=== PATIENT | female | born 1980 | race Caucasian/White ===

== ENCOUNTER 2017-07-15 14:44 | Emergency (ER) | payer BC ==
[~2017-07-15] VITALS: Ht 170.2 cm; Wt 61.2 kg
[2017-07-15 15:30] LABS: STREPTOCOCCUS GRP A ANTIGEN NEGATIVE (NEGATIVE)
[2017-07-15 15:39] LABS: INFLUENZAE A&B ANTIGEN (RAPID) NEGATIVE (NEGATIVE)
[2017-07-15 16:20] VITALS: BP 114/67
== END 2017-07-15 16:21 | disposition home or self-care (01) ==
LOC: ER 14:44
DX: J02.9 Acute pharyngitis, unspecified (principal)
CPT/HCPCS: 83518; 87070; 87400; 99282

== ENCOUNTER 2018-04-08 19:29 | Emergency (ER) | payer BC ==
[~2018-04-08] VITALS: Ht 170.2 cm; Wt 61.2 kg
[2018-04-08] MEDS ORDERED: CEFTRIAXONE SOD 1 GM VIAL IM ONE (20:00)
[2018-04-08] MEDS ORDERED: PHENAZOPYRIDINE HCL 100 MG TAB PO ONE (20:00)
[2018-04-08 20:20] LABS: CLARITY,URINE CLOUDY (CLEAR); COLOR,URINE RED (YELLOW); LEUKOCYTE ESTERASE ,URINE 1+ (NEGATIVE)
[2018-04-08 20:21] LABS: BILIRUBIN,URINE NEGATIVE (NEGATIVE); KETONES,URINE NEGATIVE (NEGATIVE); NITRITE,URINE POSITIVE (NEGATIVE); PREGNANCY TEST, URINE NEGATIVE (NEGATIVE); PROTEIN,URINE DIPSTICK 3+ (NEGATIVE); URINE UROBILINOGEN 0.2 mg/dL (0.2 - 1)
[2018-04-08 20:33] LABS: EPITHELIAL CELLS,URINE FEW /LPF; RBC,URINE >50 /HPF (0-5); WBC,URINE (MAN) >50 /HPF (0-5)
[2018-04-08] MEDS ORDERED: LIDOCAINE HCL 1% LOCAL INJ 20 ML VIAL ONE (20:42)
[2018-04-08] MEDS ORDERED: PHENAZOPYRIDINE HCL 100 MG TAB ONE (20:42)
[2018-04-08 21:58] VITALS: BP_DIAS 73
--- OUTSIDE RECORDS SUMMARY | 2018-04-11 13:46 | XMS REPORT | Clinical Summary ---
Author Author [facility] Organization [facility] Address Unknown Phone Unavailable Care Team Providers Care Dinkey Operator Name Role Phone Juancho Ramos MD PCP Unavailable Allergies No Known Allergies Current Medications Prescription Sig. Disp. Refills Start End Date Status Date gylkauwewuoj-Rh-ggjw-mine Take by mouth. Active rals (MULTIPLE VITAMIN, WOMENS) tablet Active Problems Not on file Encounters Date Type Specialty Care Team Description 12/05/2017 Telephone Obstetrics and Gynecology Prerna Tejeda RN 11/30/2017 Procedure visit Obstetrics and Gynecology Lars Encinas MD Pre-procedure lab exam (Primary Dx); ASCUS with positive high risk HPV cervical 11/02/2017 Telephone Obstetrics and Gynecology Jackelyn Velasquez MA 10/26/2017 Office Visit Obstetrics and Gynecology Lars Encinas MD Well woman exam (Primary Dx) after 04/07/2017 Family History Medical History Relation Name Comments Cancer Father leiomyoma Diabetes Paternal Grandmother Relation Name Status Comments Father Paternal Grandmother Social History Tobacco Use Types Packs/Day Years Used Date Never Smoker Smokeless Tobacco: Never Used Alcohol Use Drinks/Week oz/Week Comments No Sex Assigned at Date Recorded Not on file Last Filed Vital Signs Vital Sign Reading Time Taken Blood Pressure 120/80 11/30/2017 11:13 AM CDT Pulse 74 11/30/2017 11:13 AM CDT Temperature 36.9 C (98.4 F) 10/26/2017 11:12 AM CDT Respiratory Rate - - Oxygen Saturation - - Inhaled Oxygen - - Concentration Weight 60.3 kg (133 lb) 11/30/2017 11:13 AM CDT Height 170.2 cm (5' 7") 11/30/2017 11:13 AM CDT Body Mass Index 20.83 11/30/2017 11:13 AM CDT Plan of Treatment Health Maintenance Due Date Last Done Comments CERVICAL CANCER SCREENING 2001 INFLUENZA VACCINE 01/25/2018 Procedures Procedure Name Priority Date/Time Associated Diagnosis Comments TISSUE, SPECIMEN B Routine 11/30/2017 Results for this 11:46 AM CDT procedure are in the results section. SURGICAL PATHOLOGY Routine 11/30/2017 Pre-procedure lab exam Results for this REQUEST 11:46 AM CDT ASCUS with positive high procedure are in the risk HPV cervical results section. TISSUE, SPECIMEN A Routine 11/30/2017 Results for this 11:46 AM CDT procedure are in the results section. POC , URINE Routine 11/30/2017 Pre-procedure lab exam Results for this 11:20 AM CDT procedure are in the results section. HPV MRNA E6/E7 Routine 10/26/2017 Results for this 11:35 AM CDT procedure are in the results section. THINPREP TIS PAP Routine 10/26/2017 Results for this 11:35 AM CDT procedure are in the results section. after 04/07/2017 Results * Tissue, Specimen B (11/30/2017 11:46 AM) Source Ectoc[facility]ix [facility] Procedure Comment: Biopsy [facility] Gross description: Comment: [facility] Ectocervix, received in [facility] formalin, verified as to the patient's name and consists of one fragment(s) of rubbery, arnold-delgado, glistening tissue, measuring 0.3 x 0.2 x 0.1 cm.TS, one block. DT 11/30/2017 Micro description Comment: [facility] Microscopic examination [facility] supports the above diagnosis. Diagnosis Comment: [facility] Squamous mucosa with reactive [facility] squamous changes. No evidence of dysplasia or malignancy. Comment Comment: [facility] The previous pap smear [facility] ([id number]) is reviewed. It is felt that the findings of benign reactive squamous changes may explain the atypical cells seen on the pap smear. Clinical correlation and repeat pap smear with HPV studies in 4-6 months are recommended if clinically indicated. Other Results Text Performing Organization Information: Site ID: [id number] Name: [facility], Address: [address] [place] [phone] Director: Grupo Borden MD Performing Organization Address City/State/Zipcode Phone Number [facility] [employer] [address] [address] [facility] * TISSUE, SPECIMEN A (11/30/2017 11:46 AM) Source Comment: End[facility] (Cure[employer]age) [facility] Gross description: Comment: [facility] ECC, received in formalin, [facility] verified as to the patient's name and consists of multiple fragments of delgado translucent mucus and soft tissue forming a loose aggregate measuring 0.6 x 0.5 x 0.1 cm. Tissue may not survive processing.TS, one block. Gross exam(s) performed at: [facility] [address] [place] [phone] Associate Professor Of Physics: GRUPO BORDEN MD Micro description Comment: [facility] Microscopic examination [facility] supports the above diagnosis. Diagnosis Comment: [facility] Fragments of benign [facility] endocervical mucosa with squamous metaplasia and mucus. No evidence of dysplasia or malignancy. Other Results Text Performing Organization Information: Site ID: [id number] [facility]: [facility], Address: [address] [place] [address] Director: Grupo Borden MD Performing Organization Address City/[facility]/Zipcode Phone Number [place] [phone] [facility] * Surgical pathology request (11/30/2017 11:46 AM) Clinical information Comment: ASCUS, HPV+ [facility] Pathologist Comment: [facility] Grupo Borden MD, Board [facility] Certified in Anatomic Pathology, [phone] (electronic signature) Specimen Tissue Other Results Text Performing Organization Information: Site ID: [id number] Name: [facility], Address: [address] [place] [address] Director: Grupo Borden MD Performing Organization Address City/[facility]/[place] [address] [facility] * POC , urine (11/30/2017 11:20 AM) test urine, POC Negative QC done Yes Specimen Urine * HPV mRNA E6/E7 (10/26/2017 11:35 AM) HPV mRNA e6/e7 Detected (A) Not Detected [facility] [employer] Comment: [facility] This test was performed using the APTIMA HPV Assay ([employer] This assay detects E6/E7 viral messenger RNA (mRNA) from 14 high-risk HPV types (16,18,31,33,35,39,45,51,52,56 ,58,59,66,68). Other Results Text Performing Organization Information: Site ID: [id number] Name: [facility] Address: [address] [place] [phone] Director: Grupo Borden Performing Organization Address City/State/[facility] Phone [place] [address] * THINPREP TIS PAP (10/26/2017 11:35 AM) Clinical information None given [facility] Date of last menstrual NONE GIVEN [facility] [place] period [facility] Prev. pap: NONE GIVEN [facility] Prev. bx: NONE GIV[facility] Source None given [facility] Statement of adequacy Comment: [facility] NAT[facility] Satisfactory for evaluation. [facility] Endocervical/transformation zone component absent. Age and/or menstrual status not provided General categorization (A)Comment: EPITHELIAL CELL [facility] [place] ABNORMALITY [facility] Interpretation/result: (A) [facility] Comment: [facility] Atypical Squamous Cells of Undetermined Significance (ASC-US) Comment Comment: [facility] Tip of collection device in [facility] vial This Pap test has been evaluated with computer assisted technology. Histologist Technologist Comment: [facility] NATALIE [facility], CT(ASCP) [facility] CT screening location: [place] [id number] Review slice plug cutter operator Comment: [facility] NATALIE J[facility], CT(ASCP) [facility] CT screening location: [place] [id number] Pathologist Comment: [facility] NATALIE Pitt MD, Board [facility] Certified in Anatomic Pathology and subspeciality in Cytopathology. [phone] (electronic signature) Comment Comment: [employer] [place] EXPLANATORY NOTE: [facility] The Pap is a screening test for cervical cancer. It is not a diagnostic test and is subject to false negative and false positive results. It is most reliable when a satisfactory sample, regularly obtained, is submitted with relevant clinical findings and history, and when the Pap result is evaluated along with historic and current clinical information. Other Results Text Performing Organization Information: Site ID: [id number] Name: [facility], Address: [address] [place] [phone] Director: Grupo Borden MD Performing Organization Address City/State/Zipcode Phone Number [facility] [employer] [address] [address] [facility] after 04/07/2017 Insurance Payer Benefit Subscriber ID Type Phone Address Plan / Group BCBS BCBS xxxxxxxxxxxx PPO CHOICE PPO/[place] [address]
== END 2018-04-08 21:20 | disposition home or self-care (01) ==
LOC: ER 19:29
DX: R30.0 Dysuria (principal); N30.91 Cystitis, unspecified with hematuria
CPT/HCPCS: 81001; 81025; 87086; 87186; 99283; J0696; J2001

== ENCOUNTER 2019-05-24 11:25 | Inpatient (IN) | payer BC ==
[~2019-05-24] VITALS: Ht 167.6 cm; Wt 58.5 kg
[2019-05-24] MEDS ORDERED: FAMOTIDINE 20 MG/2 ML VIAL IV ONE ×2 (11:43→12:00)
[2019-05-24] MEDS ORDERED: ONDANSETRON HCL INJ 2MG/ML 2ML 2 MG/ML VIAL IV ONE (11:43)
[2019-05-24] MEDS ORDERED: MORPHINE SULFATE 5 MG/ML VIAL IV ONE (11:45)
[2019-05-24] MEDS ORDERED: SODIUM CHLORIDE 0.9% 1000ML 1,000 ML IV SCH ×2 (11:45→12:00)
[2019-05-24] MEDS ORDERED: ONDANSETRON HCL INJ 2MG/ML 2ML 2 MG/ML VIAL ONE ×3 (11:59→16:18)
[2019-05-24] MEDS ORDERED: MORPHINE SULFATE INJ 4 MG/ML INJ 1ML IV ONE (12:00)
[2019-05-24] MEDS ORDERED: SODIUM CHLORIDE 0.9% 1000ML 1,000 ML ONE ×3 (12:00→16:19)
[2019-05-24] MEDS ORDERED: MORPHINE SULFATE INJ 4 MG/ML INJ 1ML ONE (12:00)
[2019-05-24] MEDS ORDERED: KETOROLAC TROMETHAMINE 30 MG/ML VIAL ONE ×2 (12:31→16:11)
[2019-05-24] MEDS ORDERED: KETOROLAC TROMETHAMINE 30 MG/ML VIAL IV ONE (12:31)
[2019-05-24] MEDS ORDERED: DIATRIZOATE MEGL/DIATRIZOA SOD 30 ML BTL PO ONE (13:24)
[2019-05-24] MEDS ORDERED: SODIUM CHLORIDE 0.9% 50ML 50 ML ONE (13:24)
[2019-05-24] MEDS ORDERED: IOPAMIDOL 370 MG/ML 200 ML INFUS..BTL INJ ONE (13:24)
--- NOTE | 2019-05-24 13:27 | Diagnostic Imaging Report ---
EXAM: Right Upper Quadrant Ultrasound INDICATION: Abdominal pain, nausea, vomiting, right upper quadrant pain COMPARISON: None. TECHNIQUE: Transverse and longitudinal images of the right upper abdomen were obtained. FINDINGS: Liver: Size: 14.7 cm in the right midclavicular line, normal Appearance: Normal echogenicity, smooth contour Mass: No focal masses Gallbladder: Stones/Sludge: Small amount of sludge is noted within the gallbladder lumen. There are several echogenic nonshadowing nonmobile structures in the gallbladder wall, consistent with small polyps, with the largest measuring approximately 0.8 x 0.5 cm. Wall: 0.2 cm Appearance: No wall thickening, pericholecystic fluid or hydrops. Sonographic Sanchez's Sign: Negative Bile Ducts: Intrahepatic Ducts: No dilatation Extrahepatic Ducts: Common bile duct measures 0.2 cm, no dilatation Pancreas: Visualized portions of the pancreatic neck and proximal body are normal. Kidneys: Length: Right 11.7 cm Echogenicity: Normal Collecting System: No hydronephrosis Stone: None Cyst/Mass: None Vessels: Aorta: Visualized portions are normal Inferior Vena Cava: Visualized portions are normal Main Portal Vein: 1.0 cm, normal size with hepatopetal flow. Free Fluid: No ascites or pleural effusion IMPRESSION: 1. Gallbladder sludge. No cholelithiasis. No evidence of cholecystitis. 2. Gallbladder polyps, with the largest measuring approximately 0.8 cm. No risk factors for gallbladder neoplasm. Recommend follow-up gallbladder ultrasound in 6 months to document stability. Signed by: Dr. Tomás Neff M.D. on 05/24/2019 1:23 PM
--- NOTE | 2019-05-24 15:17 | Diagnostic Imaging Report ---
EXAMINATION: CT of the abdomen and pelvis with contrast. TECHNIQUE: Spiral CT images of the abdomen and pelvis were performed from the lung bases to the lesser trochanters after the intravenous administration of 100 cc of Isovue 370 and the oral administration of dilute Gastrografin. Coronal and sagittal reformatted images were obtained. COMPARISON: None. CLINICAL HISTORY:Right lower quadrant pain, abdominal pain, nausea and vomiting, mildly elevated white blood cell count DISCUSSION: ABDOMEN/PELVIS: LOWER THORAX:Unremarkable. HEPATOBILIARY: No focal hepatic lesions. No intra or extrahepatic biliary ductal dilation. GALLBLADDER: No radio-opaque stones or sludge. No wall thickening. SPLEEN: No splenomegaly. PANCREAS: No focal masses or ductal dilatation. ADRENALS: No adrenal nodules. KIDNEYS/URETERS: No hydronephrosis, stones, or solid mass lesions. PELVIC ORGANS/BLADDER: Bladder and uterus are unremarkable. No adnexal masses. PERITONEUM/RETROPERITONEUM: Small amount of free fluid in the pelvic cul-de-sac. LYMPH NODES: No intra-abdominal, retroperitoneal, pelvic or inguinal lymphadenopathy. VESSELS: The celiac trunk,superior and inferior mesenteric and bilateral renal arteries are patent The portal, superior mesenteric and splenic veins are patent. GI TRACT: Appendix is dilated, measuring approximately 1.3 cm in caliber (series 2, image 9) and is air and fluid-filled. A 1.1 cm calcific density at the proximal portion adjacent to the cecum likely represents an appendicolith. No significant appendiceal wall enhancement or wall thickening. Minimal surrounding stranding.. No foci of extraluminal air or well-defined enhancing fluid collections. Rest of the bowel shows no dilation or evidence of obstruction. BONES AND SOFT TISSUE: No bony destructive lesions. No soft tissue abnormalities. IMPRESSION: 1. Findings likely represent early appendicitis in the appropriate clinical setting. No evidence of perforation or adjacent abscess formation. 2. Findings discussed with Dr. Stallworth at 15 00 hours Signed by: Dr. Tomás Neff M.D. on 05/24/2019 3:13 PM
--- NOTE | 2019-05-24 15:35 | NUR ---
Call Dr. Rice when pt arrives in room.
[2019-05-24] MEDS ORDERED: MORPHINE SULFATE 2 MG/ML SYR 1ML IV PRN (15:40)
[2019-05-24] MEDS ORDERED: PIPER-TAZ 3.375 GM 50 ML IV ONE (15:45)
--- OUTSIDE RECORDS SUMMARY | 2019-05-24 15:52 | XMS REPORT ---
Author [facility] Address Unknown Phone Unavailable Care Team Providers Care District Court Judge Name Role Phone Jenni STALLWORTH Unavailable Unavailable Problems This patient has no known problems. Allergies, Adverse Reactions, Alerts This patient has no known allergies or adverse reactions. Medications This patient has no known medications. Results Test Description Test Time Test Comments Text Results Atomic Results Result Comments CT ABD/PEL WITH CONTRAST-HOPD 2019-05-24 14:58:00 [place] [address] Patient Name: JAZIEL TREJO MR #: [id number] : 1980 Age/Sex: 38/F Req #: [id number] Adm Physician: Ordered by: ORA STALLWORTH MD Report #: [id number] Location: [facility] Room/Bed: Procedure: [id number] HOPD/CT ABD/PEL WITH CONTRAST-HOPD Exam Date: 05/24/19 Exam Time: 1418 REPORT STATUS: Signed EXAMINATION: CT of the abdomen and pelvis with contrast. TECHNIQUE: Spiral CT images of the abdomen and pelvis were performed from the lung bases to the lesser trochanters after the intravenous administration of 100 cc of Isovue 370 and the oral administration of dilute Gastrografin. Coronal and sagittal reformatted images were obtained. COMPARISON: None. CLINICAL HISTORY:Right lower quadrant pain, abdominal pain, nausea and vomiting, mildly elevated white blood cell count DISCUSSION: ABDOMEN/PELVIS: LOWER THORAX:Unremarkable. HEPATOBILIARY: No focal hepatic lesions. No intra or extrahepatic biliary ductal dilation. GALLBLADDER: No radio-opaque stones or sludge. No wall thickening. SPLEEN: No splenomegaly. PANCREAS: No focal masses or ductal dilatation. ADRENALS: No adrenal nodules. KIDNEYS/URETERS: No hydronephrosis, stones, or solid mass lesions. PELVIC ORGANS/BLADDER: Bladder and uterus are unremarkable. No adnexal masses. PERITONEUM/RETROPE RITONEUM: Small amount of free fluid in the pelvic cul-de-sac. LYMPH NODES: No intra-abdominal, retroperitoneal, pelvic or inguinal lymphadenopathy. VESSELS: The celiac trunk,superior and inferior mesenteric and bilateral renal arteries are patent The portal, superior mesenteric and splenic veins are patent. GI TRACT: Appendix is dilated, measuring approximately 1.3 cm in caliber (series 2, image 9) and is air and fluid- filled. A 1.1 cm calcific density at the proximal portion adjacent to the cecum likely represents an appendicolith. No significant appendiceal wall enh ancement or wall thickening. Minimal surrounding stranding.. No foci of extraluminal air or well-defined enhancing fluid collections. Rest of the bowel shows no dilation or evidence of obstruction. BONES AND SOFT TISSUE: No bony destructive lesions. No soft tissue abnormalities. IMPRESSION: 1. Findings likely represent early appendicitis in the appropriate clinical setting. No evidence of perforation or adjacent abscess formation. 2. Findings discussed with Dr. Stallworth at 15 00 hours Signed by: Dr. Rio Neff M.D. on 05/24/2019 3:13 PM Dictated By: RIO NEFF MD 1513 Transcribed By: AMBIKA on 05/24/19 1515 COPY TO: ORA STALLWORTH MD GALL BLADDER-HOPD 2019-05-24 13:18:00 [place] [address] Patient Name: JAZIEL TREJO MR #: [id number] : 1980 Age/Sex: 38/F Req #: [id number] Adm Physician: Ordered by: ORA STALLWORTH MD Report #: [id number] Location: [facility] Room/Bed: Procedure: [id number] HOPD/US GALL BLADDER-HOPD Exam Date: Exam Time: REPORT STATUS: Signed EXAM: Right Upper Quadrant Ultrasound INDICATION: Abdominal pain, nausea, vomiting, right upper quadrant pain COMPARISON: None. TECHNIQUE: Transverse and longitudinal images of the right upper abdomen were obtained. FINDINGS: Liver: Size: 14.7 cm in the right midclavicular line, normal Appearance: Normal echogenicity, smooth contour Mass: No focal masses Gallbladder: Stones/Sludge: Small amount of sludge is noted within the gallbladder lumen. There are several echogenic nonshadowing nonmobile structures in the gallbladder wall, consistent with small polyps, with the largest measuring approximately 0.8 x 0.5 cm. Wall: 0.2 cm Appearance: No wall thickening, pericholecystic fluid or hydrops. Sonographic Sanchez's Sign: Negative Bile Ducts: Intrahepatic Ducts: No dilatation Extrahepatic Ducts: Common bile duct measures 0.2 cm, no dilatation Pancreas: Visualized portions of the pancreatic neck and proximal body are normal. Kidneys: Length: Right 11.7 cm Echogenicit y: Normal Collecting System: No hydronephrosis Stone: None Cyst/Mass: None Vessels: Aorta: Visualized portions are normal Inferior Vena Cava: Visualized portions are normal Main Portal Vein: 1.0 cm, normal size with hepatopetal flow. Free Fluid: No ascites or pleural effusion IMPRESSION: 1. Gallbladder sludge. No cholelithiasis. No evidence of cholecystitis. 2. Gallbladder polyps, with the largest measuring approximately 0.8 cm. No risk factors for gallbladder neoplasm. Recommend follow-up gallbladder ultrasound in 6 months to document stability. Signed by: Dr. Rio Neff M.D. on 05/24/2019 1:23 PM Dictated By: RIO NEFF MD 1323 Transcribed By: AMBIKA on 05/24/19 132 COPY TO: ORA STALLWORTH MD
--- NOTE | 2019-05-24 15:59 | NUR ---
Called [facility] to transport pt to room 209
[2019-05-24] MEDS ORDERED: MORPHINE SULFATE INJ 4 MG/ML INJ 1ML IV PRN ×2 (16:00→19:45)
[2019-05-24] MEDS ORDERED: PIPER-TAZ 3.375 GM 50 ML ONE (16:01)
[2019-05-24] MEDS ORDERED: ACETAMINOPHEN 1000 MG/100 ML IV STA (16:10)
[2019-05-24] MEDS ORDERED: PROPOFOL IV EMULSION 10 MG/ML 20 ML VIAL ONE (16:11)
[2019-05-24] MEDS ORDERED: ROCURONIUM BROMIDE 10 MG/ML 5ML VIAL ONE (16:11)
[2019-05-24] MEDS ORDERED: NEOSTIGMINE 5 MG/5ML SYR ONE (16:11)
[2019-05-24] MEDS ORDERED: LIDOCAINE HCL 2% LOCAL INJ 5 ML SDV VIAL INJ ONE (16:11)
[2019-05-24] MEDS ORDERED: DEXAMETHASONE SOD PHOS INJ 4 MG/ML VIAL ONE (16:11)
[2019-05-24] MEDS ORDERED: GLYCOPYRROLATE INJ 1MG/ 5 ML SYR ONE (16:11)
[2019-05-24] MEDS ORDERED: SEVOFLURANE INHAL SOLN 250 ML PEN BTL ONE (16:11)
[2019-05-24] MEDS ORDERED: FENTANYL CITRATE/PF 100MCG/2 ML INJ IV ONE (16:15)
[2019-05-24] MEDS: SODIUM CHLORIDE 0.9% 1000ML 1,000 ML IV SCH ×2 (16:15→21:39)
[2019-05-24] MEDS: ONDANSETRON HCL INJ 2MG/ML 2ML 2 MG/ML VIAL IV PRN ×2 (16:15→18:26)
[2019-05-24] MEDS ORDERED: FENTANYL CITRATE/PF 100MCG/2 ML INJ ONE ×2 (16:18→19:59)
[2019-05-24] MEDS ORDERED: ACETAMINOPHEN 1000 MG/100 ML 100 ML IV ONE (16:30)
--- NOTE | 2019-05-24 16:47 | NUR ---
Attempting report as [facility] is here to transport pt to room 209.
--- NOTE | 2019-05-24 17:02 | NUR ---
Attempted report and Kaity stated that the RN would call me back as he is moving his pts and he could not take report at this time, explained that the pt would be there before he could call me back. She stated that he would call me back to get report. [facility] has left to transport the pt to room 209.
--- NOTE | 2019-05-24 17:39 | NUR ---
Report given to AMAURY Doran
--- NOTE | 2019-05-24 17:42 | NUR ---
Recvd patient from [facility], AAOx3, ON IV fluids, not in any distress, paged Dr Rice
[2019-05-24 17:55] VITALS: BP 121/63
--- NOTE | 2019-05-24 18:05 | NUR ---
New order recvd from DR Rice to get consent for Lap appendectomy, patient signed consent
[2019-05-24 18:10] VITALS: BP 121/63
[2019-05-24] MEDS ORDERED: BUPIVACAINE HCL 0.5% INJ 30 ML VIAL INJ ONE (18:41)
--- NOTE | 2019-05-24 18:58 | NUR ---
patient off the unit for procedure.
--- NOTE | 2019-05-24 19:07 | Pre Op History & Physical ---
CHIEF COMPLAINT: Abdominal pain. HISTORY OF PRESENT ILLNESS: The patient is a 38-year-old female who presents with complaints of abdominal pain. The pain started at 4 o'clock this morning, epigastric, is not localized to right lower quadrant, just associated with nausea and vomiting. Evaluation with CT of the abdomen and pelvis revealed findings suggestive of acute appendicitis. PAST MEDICAL HISTORY: Otherwise, unremarkable. She has no chronic medical problems. PAST SURGICAL HISTORY: Only previous surgery was section x3. MEDICATIONS: There were no current medications. ALLERGIES: NO KNOWN ALLERGIES. FAMILY HISTORY: Noncontributory. SOCIAL HISTORY: The patient does not smoke cigarettes. Does not drink alcohol. REVIEW OF SYSTEMS: As stated above, otherwise was negative. She has had no fever, no weight loss. PHYSICAL EXAMINATION: GENERAL: The patient is awake and alert, in no distress. VITAL SIGNS: Normal. HEENT: Unremarkable. Sclerae are nonicteric. NECK: Supple with no masses. LUNGS: Equal breath sounds are clear bilaterally. CARDIAC: Regular rate and rhythm. Normal S1, S2 without murmur, S3, S4. There is no jugular venous distention. ABDOMEN: Tender in the right lower quadrant with signs of peritonitis localized to right lower quadrant. There is no mass. There is no distention. No organomegaly. EXTREMITIES: Have no edema. Pulses are palpable. NEUROLOGIC: Intact. ASSESSMENT: This is a 38-year-old female. Acute appendicitis. She has not been in the hospital. PLAN: Laparoscopic appendectomy. Procedure was explained to the patient including risks, benefits, and alternatives. She understands. She has had the opportunity to ask questions. She is aware of the possible need for open surgery. MD THERESA Prado/TIFFANIEL /[id number]
--- NOTE | 2019-05-24 19:20 | NUR ---
PATIENT IS OFF UNIT FOR SX
[2019-05-24] MEDS ORDERED: HYDROCODONE/APAP 5MG-325MG TAB PO PRN (19:45)
[2019-05-24] MEDS ORDERED: ONDANSETRON HCL INJ 2MG/ML 2ML 2 MG/ML VIAL IV PRN (19:45)
[2019-05-24] MEDS ORDERED: MIDAZOLAM HCL 2 MG/2 ML VIAL ONE (19:59)
--- NOTE | 2019-05-24 20:03 | Operative Report ---
DATE OF PROCEDURE: 05/24/2019 SURGEON: Shai Rice MD PREOPERATIVE DIAGNOSIS: Acute appendicitis. POSTOPERATIVE DIAGNOSIS: Acute appendicitis. PROCEDURES PERFORMED: Diagnostic laparoscopy, laparoscopic appendectomy. FINISHING AREA OPERATOR: None. ANESTHESIA: General endotracheal. INDICATIONS AND FINDINGS: The patient is a 38-year-old female, who presented with a 1-day history of abdominal pain, localized to right lower quadrant. At surgery, the patient was found to have acutely inflamed appendix. TECHNIQUE: After adequate general endotracheal anesthesia, the patient in supine position, the abdomen was prepped and draped in sterile fashion with ChloraPrep solution. Skin in the umbilicus was infiltrated with 0.5% Marcaine. Incision was made in the umbilicus. Abdominal wall was elevated and Veress needle was introduced. Pneumoperitoneum was then created. A 10 mm trocar and cannula was then passed through the umbilical wound. Laparoscopic camera was introduced. Initial laparoscopy revealed acutely inflamed appendix. A 12 mm trocar and cannula was placed suprapubically and a 5 mm trocar and cannula was placed in the right upper quadrant. These were placed under direct vision. The cecum was elevated. The mesoappendix was divided with LigaSure device until the appendix was free all the way down to its base. The base of the appendix was then divided close to the cecum with Endo-DONNELL stapler freeing the appendix completely. Appendix was then placed into an Endopouch and brought out through the suprapubic cannula. Care was taken that did not touch the abdominal wall. Peritoneal cavity was irrigated with saline. All fluid aspirated was inspected for hemostasis, which was seen to be adequate. It was irrigated once again with saline. All fluid aspirated was inspected once again for hemostasis, which was seen to be adequate. Instruments and cannulas were removed. Pneumoperitoneum was evacuated. Wounds were then closed. Fascia in the umbilical and suprapubic wound closed with 0 Vicryl. Skin to all wounds closed with 4-0 Vicryl in subcuticular fashion. Dermabond and sterile dressing were applied to each wound. The patient tolerated the procedure well. Estimated blood loss was 5 cc. There were no complications. All counts were correct. The patient was taken to the recovery room in satisfactory condition. MD THERESA Prado/MEEK Velazquez: 05/24/2019 19:45:23 /[id number]
--- NOTE | 2019-05-24 20:30 | NUR ---
PATIENT IS BACK FROM RECOVERY. 3 TROCHAL SITES FROM LAP APPY NOTED, BANDAGE DRY AND INTACT NOTED
[2019-05-24 21:00] VITALS: BP 102/57
[2019-05-24] MEDS: DEXTROSE 5%/0.45% SOD CHL 1,000 ML IV SCH (21:39)
[2019-05-24] MEDS: PIPER-TAZ 3.375 GM 50 ML IV SCH (23:42)
[2019-05-25 00:20] VITALS: BP 99/58
[2019-05-25] MEDS: ACETAMINOPHEN 325 MG TAB PO PRN ×2 (00:41→08:07)
[2019-05-25 05:01] VITALS: BP_SYST 110; BP_SYST 83; BP_DIAS 56; BP_DIAS 63
[2019-05-25] MEDS: DEXTROSE 5%/0.45% SOD CHL 1,000 ML IV SCH (05:50)
[2019-05-25] MEDS: PIPER-TAZ 3.375 GM 50 ML IV SCH (06:15)
[2019-05-25 07:02] VITALS: BP 106/69
--- NOTE | 2019-05-25 07:08 | NUR ---
pt asleep resp even and unlabored at this time no distress noted, pt easily aroused, no c/o pain when asked, call light in reach.
[2019-05-25 09:05] VITALS: BP 106/69
--- NOTE | 2019-05-25 09:30 | NUR ---
pt in room talking o Dr Rice, pt family members at bedside.
[2019-05-25] MEDS: SODIUM CHLORIDE 0.9% 1000ML 1,000 ML IV SCH (09:59)
--- NOTE | 2019-05-25 10:43 | NUR ---
PT NOT IN ROOM TO COMPLETE ASSESSMENT.
[2019-05-25 11:08] VITALS: BP 102/56
--- NOTE | 2019-05-25 11:20 | NUR ---
pt discharged home with family, pt prescription were discussed, pt verbalized understanding, pt was asked to follow up with her PCP, and surgeon. iv site removed, no swelling no redness to site.
== END 2019-05-25 11:35 | disposition home or self-care (01) | DRG 343 ==
LOC: FSED 11:25 → ERHOLD 15:37 → MED/SURG2 17:49
PROVIDERS: ADMIT Surgery; ATTEND Surgery
PROC: 0DTJ4ZZ Resection of Appendix, Percutaneous Endoscopic Approach (ICD-10-PCS; principal; 2019-05-24 19:00)
DX: K35.80 Unspecified acute appendicitis (principal)
CPT/HCPCS: 36415; 74177; 76705; 80053; 81003; 81025; 83690; 85025; 88304; 96374; 96375; 99284; J1100; J1885; J2001; J2250; J2270; J2405; J2543; J3010; J7030; Q9967

== ENCOUNTER → 2019-12-05 | Outpatient (CLI) | payer BC ==
--- NOTE | 2019-12-06 08:43 | Diagnostic Imaging Report ---
#[id number] - MGDXBIL #BILATERAL FIRST EVER DIGITAL DIAGNOSTIC MAMMOGRAM WITH CAD: 12/05/2019 CLINICAL: Palpable lump left breast. No prior exams were available for comparison. The tissue of both breasts is extremely dense, which lowers the sensitivity of mammography. Current study was also evaluated with a Computer Aided Detection (CAD) system. There is an oval equal density mass with a circumscribed margin in the left breast at 12 o'clock anterior depth. No other significant masses, calcifications, or other findings are seen in either breast. IMPRESSION: PROBABLY BENIGN The oval equal density mass in the left breast is probably benign. A follow-up in 6 months is recommended. A follow-up mammogram and an ultrasound in 6 months is recommended to demonstrate stability. The patient has been or will be notified of the results. VELIA PIKE M.D. kw/:12/05/2019 15:53:55 Booth Manager: Jennifer YOUSSEF)(James), [facility] letter sent: Followup Recommended Mammogram BI-RADS: 3 Probably benign
--- NOTE | 2019-12-06 08:43 | Diagnostic Imaging Report ---
#[id number] - USBRELIMLT ULTRASOUND OF THE LEFT BREAST : 12/05/2019 Comparison is made to exam dated: 12/05/2019 mammogram - [facility]. Color flow and real-time ultrasound were performed on the left breast. Dillon scale images of the real-time examination were reviewed. There is wider than tall oval mass with a circumscribed margin in the left breast at 12 o'clock anterior depth. This oval mass is hypoechoic. This correlates with mammography findings. Color flow imaging demonstrates that there is no increase in vascularity. 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 A follow-up in 6 months is recommended. A follow-up mammogram and an ultrasound in 6 months is recommended to demonstrate stability. The patient has been or will be contacted. VELIA kenney/beck:12/05/2019 15:55:05 Instructional Technologist: Kitty Gregory [facility], [facility] letter sent: Followup Recommended Ultrasound BI-RADS: 3 Probably benign
== END ==
LOC: MAMMO 12:16
PROVIDERS: ATTEND Obstetrics & Gynecology
DX: N63.20 Unspecified lump in the left breast, unspecified quadrant (principal)
CPT/HCPCS: 77066

== ENCOUNTER → 2020-05-26 | Outpatient (CLI) | payer BC, OTHER | LOC: MRI 10:44 | PROVIDERS: ATTEND Orthopaedic Surgery | DX: S83.241A Other tear of medial meniscus, current injury, right knee, initial encounter (principal); M23.303 Other meniscus derangements, unspecified medial meniscus, right knee ==

== ENCOUNTER 2020-06-13 07:00 | Outpatient (RCR) | payer OTHER | END 2020-06-26 | LOC: PT 07:00 | PROVIDERS: ATTEND Orthopaedic Surgery | DX: M25.561 Pain in right knee (principal) | CPT/HCPCS: 97110 ×3; 97162; G0283 ==

== ENCOUNTER → 2020-06-18 | Outpatient (CLI) | payer OTHER | LOC: MAMMO 09:10 | PROVIDERS: ATTEND Obstetrics & Gynecology | DX: R92.2 Inconclusive mammogram (principal); D24.2 Benign neoplasm of left breast ==

== ENCOUNTER → 2020-06-29 | Outpatient (CLI) | payer OTHER ==
[~2020-06-29] MED LIST: COVID-19 VACC, MRNA(MODERNA)/PF 100 MCG/0.5 ML VIAL IM ONE
== END ==
LOC: VACCPMC 17:00
DX: Z23 Encounter for immunization (principal); Z20.822 Contact with and (suspected) exposure to COVID-19

== ENCOUNTER → 2020-07-16 | Day surgery (SDC) | payer OTHER ==
[~2020-07-16] MED LIST changes: +ACETAMINOPHEN 1000 MG/100 ML 100 ML IV ONE; +BUPIVACAINE 0.25% 30ML SDV ONE; +BUPIVACAINE 0.25%/EPI 30ML SDV INJ ONE; +CEFAZOLIN SOD 1 GM/NS 50ML 100 ML IV ONE; -COVID-19 VACC, MRNA(MODERNA)/PF 100 MCG/0.5 ML VIAL IM ONE; +DEXAMETHASONE SOD PHOS INJ 4 MG/ML VIAL ONE; +FENTANYL CITRATE/PF 100MCG/2 ML INJ ONE; +HYDROCODONE/APAP 7.5MG-325MG 1 EA TAB ONE; +KETOROLAC TROMETHAMINE 30 MG/ML VIAL ONE; +LIDOCAINE 2%/ EPINEPHRINE 20ML MDV ONE; +LIDOCAINE HCL 2% LOCAL INJ 5 ML SDV VIAL INJ ONE; +MAGNESIUM OXID400 MG PO; +MEPERIDINE HCL INJ 25 MG/ML VIAL ONE; +MULTI-VITAMIN1 EACH PO; +ONDANSETRON HCL INJ 2MG/ML 2ML 2 MG/ML VIAL ONE; +PROPOFOL IV EMULSION 10 MG/ML 20 ML VIAL ONE; +ROPIVACAINE 0.5% 5 MG/ML 30 ML SDV ONE; +SEVOFLURANE INHAL SOLN 250 ML PEN BTL ONE
[2020-07-16 11:30] VITALS: BP 102/73
== END | disposition home or self-care (01) ==
LOC: OR 05:31
PROVIDERS: ATTEND Orthopaedic Surgery
DX: S83.511A Sprain of anterior cruciate ligament of right knee, initial encounter (principal); S83.241A Other tear of medial meniscus, current injury, right knee, initial encounter; S83.281A Other tear of lateral meniscus, current injury, right knee, initial encounter; M65.9 Synovitis and tenosynovitis, unspecified; X58.XXXA Exposure to other specified factors, initial encounter; Z01.812 Encounter for preprocedural laboratory examination; Z20.822 Contact with and (suspected) exposure to COVID-19
CPT/HCPCS: 29882; 29888; 81025; C1713 ×3; C1893; J0131; J0690; J1100; J1885; J2001; J2175; J2405; J2704; J2795; J3010; U0002

== ENCOUNTER 2020-07-21 14:50 | Outpatient (RCR) | payer OTHER ==
[~2020-07-21 14:50] MED LIST changes: -ACETAMINOPHEN 1000 MG/100 ML 100 ML IV ONE; -BUPIVACAINE 0.25% 30ML SDV ONE; -BUPIVACAINE 0.25%/EPI 30ML SDV INJ ONE; -CEFAZOLIN SOD 1 GM/NS 50ML 100 ML IV ONE; -DEXAMETHASONE SOD PHOS INJ 4 MG/ML VIAL ONE; -FENTANYL CITRATE/PF 100MCG/2 ML INJ ONE; -HYDROCODONE/APAP 7.5MG-325MG 1 EA TAB ONE; -KETOROLAC TROMETHAMINE 30 MG/ML VIAL ONE; -LIDOCAINE 2%/ EPINEPHRINE 20ML MDV ONE; -LIDOCAINE HCL 2% LOCAL INJ 5 ML SDV VIAL INJ ONE; -MEPERIDINE HCL INJ 25 MG/ML VIAL ONE; -ONDANSETRON HCL INJ 2MG/ML 2ML 2 MG/ML VIAL ONE; -PROPOFOL IV EMULSION 10 MG/ML 20 ML VIAL ONE; -ROPIVACAINE 0.5% 5 MG/ML 30 ML SDV ONE; -SEVOFLURANE INHAL SOLN 250 ML PEN BTL ONE
== END 2020-07-27 ==
LOC: PT 14:50
PROVIDERS: ATTEND Orthopaedic Surgery
DX: S83.511D Sprain of anterior cruciate ligament of right knee, subsequent encounter (principal); M25.561 Pain in right knee; M25.461 Effusion, right knee; M25.661 Stiffness of right knee, not elsewhere classified; M62.81 Muscle weakness (generalized); R26.9 Unspecified abnormalities of gait and mobility
CPT/HCPCS: 97161; G0283

== ENCOUNTER → 2020-08-03 | Outpatient (CLI) | payer OTHER ==
[~2020-08-03] MED LIST changes: +COVID-19 VACC, MRNA(MODERNA)/PF 100 MCG/0.5 ML VIAL IM ONE
== END | DRG 951 ==
LOC: VACCPMC 09:48
DX: Z23 Encounter for immunization (principal); Z20.822 Contact with and (suspected) exposure to COVID-19
CPT/HCPCS: 0012A; 91301

== ENCOUNTER 2020-08-22 08:24 | Outpatient (RCR) | payer OTHER ==
[~2020-08-22 08:24] MED LIST changes: -COVID-19 VACC, MRNA(MODERNA)/PF 100 MCG/0.5 ML VIAL IM ONE
== END 2020-08-24 ==
LOC: PT 08:24
PROVIDERS: ATTEND Orthopaedic Surgery
DX: S83.511D Sprain of anterior cruciate ligament of right knee, subsequent encounter (principal); S43.411D Sprain of right coracohumeral (ligament), subsequent encounter; M25.561 Pain in right knee; M25.461 Effusion, right knee; M25.661 Stiffness of right knee, not elsewhere classified; M62.81 Muscle weakness (generalized); R26.9 Unspecified abnormalities of gait and mobility
CPT/HCPCS: 97010; 97110 ×8; 97112; 97140; G0283 ×7

== ENCOUNTER 2020-09-22 08:00 | Outpatient (RCR) | payer OTHER | END 2020-09-24 | LOC: PT 08:00 | PROVIDERS: ATTEND Orthopaedic Surgery | DX: M25.561 Pain in right knee (principal); M25.661 Stiffness of right knee, not elsewhere classified; M62.81 Muscle weakness (generalized); R26.9 Unspecified abnormalities of gait and mobility ==

== ENCOUNTER 2020-10-22 08:23 | Outpatient (RCR) | payer OTHER | END 2020-10-24 | LOC: PT 08:23 | PROVIDERS: ATTEND Orthopaedic Surgery | DX: S83.281A Other tear of lateral meniscus, current injury, right knee, initial encounter (principal); M25.661 Stiffness of right knee, not elsewhere classified; R26.9 Unspecified abnormalities of gait and mobility; M62.81 Muscle weakness (generalized) | CPT/HCPCS: 97139 ==

== ENCOUNTER 2020-11-19 09:00 | Outpatient (RCR) | payer OTHER | END 2020-11-24 | LOC: PT 09:00 | PROVIDERS: ATTEND Orthopaedic Surgery | DX: S83.281A Other tear of lateral meniscus, current injury, right knee, initial encounter (principal); S83.511A Sprain of anterior cruciate ligament of right knee, initial encounter; M25.661 Stiffness of right knee, not elsewhere classified; M62.81 Muscle weakness (generalized); R26.9 Unspecified abnormalities of gait and mobility ==

== ENCOUNTER → 2020-12-11 | Outpatient (CLI) | payer OTHER | LOC: MAMMO 13:04 | PROVIDERS: ATTEND Obstetrics & Gynecology | DX: R92.2 Inconclusive mammogram (principal); N63.20 Unspecified lump in the left breast, unspecified quadrant | CPT/HCPCS: 77066 ==

== ENCOUNTER → 2021-04-24 | Outpatient (CLI) | payer OTHER ==
[~2021-04-24] MED LIST changes: +COVID-19 VACC, MRNA(MODERNA)/PF 100 MCG/0.5 ML VIAL IM ONE
== END | disposition home or self-care (01) ==
LOC: VACCPMC 09:00
DX: Z23 Encounter for immunization (principal); Z20.822 Contact with and (suspected) exposure to COVID-19
CPT/HCPCS: 91301

== ENCOUNTER → 2021-11-19 | Outpatient (CLI) | payer BC ==
[~2021-11-19] MED LIST changes: -COVID-19 VACC, MRNA(MODERNA)/PF 100 MCG/0.5 ML VIAL IM ONE
== END ==
LOC: MAMMO 10:52
PROVIDERS: ATTEND Obstetrics & Gynecology
DX: R92.2 Inconclusive mammogram (principal); D24.2 Benign neoplasm of left breast
CPT/HCPCS: 77066